=== PATIENT | male | born 1950 | race Caucasian/White ===

== ENCOUNTER → 2016-06-08 | Outpatient (CLI) | payer OTHER | END | disposition home or self-care (01) | LOC: PCVCIMAG 08:15 | PROVIDERS: ATTEND Internal Medicine | DX: I10 Essential (primary) hypertension (principal); E78.00 Pure hypercholesterolemia, unspecified; I25.10 Atherosclerotic heart disease of native coronary artery without angina pectoris; R07.9 Chest pain, unspecified | CPT/HCPCS: 78452; 93017; 93306; A9500 ==

== ENCOUNTER → 2018-11-23 | Outpatient (CLI) | payer OTHER ==
[~2018-11-23] MED LIST: REGADENOSON 0.4 MG/5 ML DISP.SYRIN. IV ONE
--- NOTE | 2018-11-23 11:51 | PCVCIMAG ---
APPROVED REPORT Study performed: 11/23/2018 08:28:31 EXAM: Comprehensive 2D, Doppler, and color-flow Echocardiogram Patient Location: Echo lab Status: routine BSA: 2.03 HR: 136 bpmBP: 124/82 mmHg Rhythm: Atrial Fibrillation Other Information Study Quality: Adequate Risk Factors: Cardiac Risk Factors: HTN, Hyperlipidemia Indications Atrial Fibrillation 2D Dimensions IVSd: 11.97 (7-11mm) LVDd: 39.93 mm PWd: 12.47 (7-11mm) LVDs: 35.08 (25-40mm) Left Atrium: 42.82 (27-40mm) Aortic Root: 30.27 mm LV Single Plane 4CH: 25.82 % LV Single Plane 2CH: 21.41 % Biplane EF: 24.5 % Volumes Left Atrial Volume (Systole) Single Plane 4CH: 90.75 mLSingle Plane 2CH: 71.25 mL LA ESV Index: 39.00 mL/m2 Aortic Valve AoV Peak Jeremias.: 0.79 m/s AO Peak Gr.: 2.59 mmHgLVOT Max P.53 mmHg LVOT Max V: 0.55 m/s Pulmonary Valve PV Peak Jeremias.: 0.58 m/sPV Peak Gr.: 1.48 mmHg Tricuspid Valve TR Peak Jeremias.: 2.53 m/s TR Peak Gr.: 26.47 mmHg Left Ventricle The left ventricle is normal size. There is normal LV segmental wall motion. Mild concentric left ventricular hypertrophy. Left ventricular ejection fraction is severely decreased. LVEF is 25%. This study is not technically sufficient to allow evaluation of the LV diastolic function due to atrial fibrillation. Right Ventricle The right ventricle is normal size. The right ventricular systolic function is normal. Atria Left atrium is mildly dilated. Right atrium is moderately dilated. Aortic Valve The aortic valve is normal in structure. No aortic regurgitation is present. There is no aortic valvular stenosis. Mitral Valve The mitral valve is normal in structure. Moderate mitral regurgitation. No evidence of mitral valve stenosis. Tricuspid Valve The tricuspid valve is normal in structure. Moderate tricuspid regurgitation with PAP of 41 mmHg. Pulmonic Valve The pulmonary valve is normal in structure. Trace pulmonic regurgitation. Great Vessels The aortic root is normal in size. IVC is normal in size and collapses >50% with inspiration. Pericardium There is no pericardial effusion. There is no pleural effusion. <Conclusion> The left ventricle is normal size. LVEF is 25%. Left atrium is mildly dilated. Right atrium is moderately dilated. The aortic valve is normal in structure. The mitral valve is normal in structure. Moderate mitral regurgitation. The tricuspid valve is normal in structure. Moderate tricuspid regurgitation with PAP of 41 mmHg. The pulmonary valve is normal in structure. Trace pulmonic regurgitation. There is no pericardial effusion.
--- NOTE | 2018-11-23 12:42 | PCVCIMAG ---
APPROVED REPORT Imaging Protocol: Rest Tc-99m/Stress Tc-99m 1 day Study performed: 11/23/2018 09:14:26 Indication: Atrial Fibrillation, High Ca Score Patient Location: Out-Patient Stress Nurse: Michelle Morrow RN, Naye Watkins RN PR Tech:Rola Basurtoaugust [facility] Ht: 5 ft 9 in Wt: 180 lbs BSA: 1.98 m2 HR: 128 bpm BP: 134/82 mmHg BMI: 26.57 Rhythm: Atrial Fibrillation, RVR Medical History Medical History: Afib, Elevated Calcium Score Medications: Bystolic, Xarelto, Crestor Allergies: No known drug allergies Cardiac Risk Factors: Age Previous Cardiac Procedures: Recent Cardioversion Pretest Chest Pain Characteristics: No chest pain Exercise History: Physically active Meds Held (24 hrs): Bystolic Resting Data Rest SPECT myocardial perfusion imaging was performed in supine position 45 minutes following the intravenous injection of 10.1 mCi of Tc-99m Sestamibi. Time of rest injection: 914 Date: 11/23/2018 Administration Route: IV Administration Site: Right AC Pharmacologic Stress Pharmacologic stress test was performed by injecting Regadenoson 0.4 mg IV push over 10-15 seconds immediately followed by the intravenous injection of 32.9 mCi of Tc-99m Sestamibi. Time of stress injection: 0 Date: 11/23/2018 Administration Route: IV Administration Site: Right AC Gated Stress SPECT was performed 45 minutes after stress injection. The images were gated to evaluate regional wall motion and calculate left ventricular ejection fraction. Stress Test Details Stress Test: Pharmacologic stress testing performed using 0.4 mg of regadenoson per 5 mL given IV over 10 seconds. Reason for pharmacologic stress test: physical limitation. HRMax Heart Rate (APMHR): 154 bpm Resting HR: 128 bpmTarget HR (85% APMHR): 130 bpm Max HR Achieved: 155 bpm % of APMHR: 100 Recovery HR: 155 bpm BP Resting BP: 134/82 mmHg Max BP: 146/94 mmHg Recovery BP: 130/84 mmHg ECG Resting ECG: Atrial Fibrillation, RVR Stress ECG: Atrial Fibrillation, RVR Arrhythmia: VPC's Recovery ECG: Atrial Fibrillation, RVR Clinical Reason for Termination: Completed protocol Stress Symptoms: None Stress ECG Conclusion 1. Adequate response intravenous Lexiscan 2. Inadequate heart rate for ECG diagnosis Study Data Post stress, the left ventricular ejection was 36%.. SSS: 0 SRS: 0 SDS: 0 TID = 1.02. Perfusion There is a large area of moderately reduced uptake in the entire segment of the inferior wall which is seen on the stress images as well as the resting images. This area thickens and moves normally and is most consistent with attenuation artifact. Wall Motion 1. Reduce global contractility without overt segmental abnormality Nuclear Conclusion ECG Findings: non-diagnostic Clinical Findings: negative for ischemia Nuclear Findings: negative for ischemia Exercise Capacity: not assessed Left Ventricular Function: abnormal 1. Low risk study based on absence of inducible ischemia 2. Post exercise left ventricular ejection fraction of 36% with global hypokinesis <Conclusion> 1. Adequate response intravenous Lexiscan 2. Inadequate heart rate for ECG diagnosis
== END | disposition home or self-care (01) ==
LOC: PCVCIMAG 08:36
PROVIDERS: ATTEND Internal Medicine
DX: I08.1 Rheumatic disorders of both mitral and tricuspid valves (principal); I10 Essential (primary) hypertension; E78.5 Hyperlipidemia, unspecified
CPT/HCPCS: 78452; 93017; 93306; A9500; J2785